=== PATIENT | female | born 1930 | race Two or more races ===

== ENCOUNTER 2017-03-12 22:09 | Inpatient (IN) | payer MEDICARE, OTHER ==
[~2017-03-12] VITALS: Ht 157.5 cm; Wt 69.4 kg
[~2017-03-12 22:09] MED LIST: AMLO5TAB2 PO; CARV25TA2 PO; CLOP75TA33 PO; LEVE500T20 PO; LISI40TA4 PO; SIMV20TA6 PO; SITA1TBM PO; VIT1TABL46 PO
--- NOTE | 2017-03-12 22:21 | NUR ---
[facility] BROUGHT INTO ER BY RESCUE FOR C/O SOB. FAMILY CALLED 911, PT IS ALERT, ORIENTED X 2, PT IS SPEAKER, NO RESP DISTRESS NOTED OR REPORTED UPON ASSESSMENT... MD AT BEDSIDE...
[2017-03-12] MEDS ORDERED: IV NORMAL SALINE 500 ML BAG IV ONE (22:30)
[2017-03-12 22:49] LABS: BASOPHILS % (AUTO) 0.5 % (0.0-2.0); EOSINOPHILS # (AUTO) 0.2 K/uL (0.0-0.7); EOSINOPHILS % (AUTO) 1.8 % (0.0-7.0); HEMATOCRIT 43.1 % (37-47); HEMOGLOBIN 13.7 G/DL (12.0-16.0); LYMPHOCYTES # (AUTO) 1.3 K/UL (0.8-4.8); LYMPHOCYTES % (AUTO) 15.2 % (20.5-51.5); MEAN CORPUSCULAR HEMOGLOBIN 27.8 UUG (27.0-31.0); MEAN CORPUSCULAR HGB CONC 32 g/dL (32.0-37.0); MEAN CORPUSCULAR VOLUME 87.3 FL (81.0-99.0); MONOCYTES # (AUTO) 0.5 K/UL (0.1-1.30); MONOCYTES % (AUTO) 6.3 % (0.0-11.0); NEUTROPHILS # (AUTO) 6.7 K/UL (1.8-8.9); NEUTROPHILS % (AUTO) 76.2 % (38.5-71.5); PLATELET COUNT (AUTO) 179 K/UL (150-450); RED BLOOD CELL COUNT(AUTO) 4.93 MIL/UL (4.2-5.4); WHITE BLOOD COUNT (AUTO) 8.7 K/UL (4.0-11.2)
[2017-03-12 22:53] LABS: CARBON DIOXIDE 38 mmol/L (21-32); CHLORIDE 99 mmol/L (98-107); CREATININE 1.1 mg/dL (0.6-1.3); GLUCOSE 139 mg/dL (74-106); POTASSIUM 4.7 mmol/L (3.5-5.1); UREA NITROGEN, BLOOD 15 mg/dL (7-18)
[2017-03-12] MEDS ORDERED: SITA1TAB6 PO (23:00)
[2017-03-12] MEDS ORDERED: LEVE1000 PO (23:00)
[2017-03-12 23:11] LABS: ALANINE AMINOTRANSFERASE 22 U/L (14-59); ALKALINE PHOSPHATASE 92 U/L (50-136); ASPARTATE AMINOTRANSFERASE 19 U/L (15-37); BILIRUBIN,DIRECT 0.1 mg/dL (0.0-0.2); BILIRUBIN,TOTAL 0.3 mg/dL (0.2-1.0); TOTAL PROTEIN, SERUM 7.8 g/dL (6.4-8.2)
[2017-03-12] MEDS ORDERED: NITROGLYCERIN OINT 1 GM PACKET TP ONE ×2 (23:15→23:23)
[2017-03-12] MEDS ORDERED: FUROSEMIDE 20 MG/2 ML VIAL IV ONE (23:15)
[2017-03-12] MEDS ORDERED: FUROSEMIDE 40 MG/4 ML VIAL ONE (23:25)
[2017-03-12 23:31] LABS: *BILIRUBIN,URIN NEGATIVE (NEGATIVE); *BLOOD, URINE NEGATIVE (NEGATIVE); *CLARITY,URINE CLEAR (CLEAR); *COLOR,URINE YELLOW (YELLOW); *KETONES,URINE NEGATIVE (NEGATIVE); *PROTEIN,URINE 1+ (NEGATIVE); *UROBILINOGEN,URINE 0.2 E.U./dl (NORMAL); LEUKOCYTE ESTERASE ,URINE 1+ (NEGATIVE); NITRITE, URINE NEGATIVE (NEGATIVE); UGLUCOSE NEGATIVE (NEGATIVE)
[2017-03-12 23:46] LABS: BACTERIA,URINE FEW /HPF (NONE SEEN); RBC,URINE 0-3 /HPF (0-3); SQUAMOUS EPITHELIAL CELL,UR MODERATE /HPF (NONE SEEN)
[2017-03-13] MEDS ORDERED: LABETALOL HCL 100 MG/20 ML VIAL IV ONE
--- NOTE | 2017-03-13 00:02 | NUR ---
Pt. admitted to TELE , under care of Dr. WALL, Belongs List completed, Pt is alert, oriented x 2, no resp distress noted or reported upon transfer assessment... pt transferred via gurney...
[2017-03-13] MEDS ORDERED: LABETALOL HCL 100 MG/20 ML VIAL ONE ×2 (00:03→00:38)
[2017-03-13] MEDS ORDERED: LABETALOL HCL 100 MG/20 ML VIAL IV PRN (00:30)
[2017-03-13] MEDS ORDERED: DEXTROSE 50% 50 ML DISP.SYRIN IV PRN ×2 (00:45→06:45)
[2017-03-13] MEDS ORDERED: INSULIN REGULAR, HUMAN 300 UNIT/3 ML VIAL SQ PRN ×2 (00:45→06:45)
--- NOTE | 2017-03-13 02:00 | NUR ---
Admitted this 86 y/o female patient via gurney escorted by family members. Awake alert & oriented. Initial assessment done. Patient speaks Mckay[place] only. No SOB denies chest pain. Placed on Telemetry- patient has pacemaker but not pacing- Sinus rhythm on the monitor. Instruction about Heart failure provided. Offered night snacks but patient refused. Will continue to monitor.
[2017-03-13 04:00] VITALS: BP 120/63
--- NOTE | 2017-03-13 06:00 | NUR ---
Rested well, no acute resp. distress. Vital signs are WNL. sinus rhythm on the monitor. For 2Decho today.
[2017-03-13] MEDS ORDERED: ONDANSETRON 4 MG/2 ML VIAL IV PRN (06:45)
[2017-03-13] MEDS ORDERED: hydrALAZINE HCL 25 MG TABLET PO PRN ×2 (06:45→19:45)
[2017-03-13] MEDS ORDERED: MAGNESIUM HYDROXIDE 30 ML LIQUID UDC PO PRN (06:45)
[2017-03-13] MEDS ORDERED: ACETAMINOPHEN 325 MG TABLET PO PRN (06:45)
[2017-03-13] MEDS ORDERED: MORPHINE SULFATE 2 MG/1 ML DISP.SYRIN IV PRN (06:45)
[2017-03-13] MEDS: BLOOD SUGAR DIAGNOSTIC 1 EACH STRIP VI SCH ×4 (06:51→21:33)
[2017-03-13] MEDS ORDERED: BLOOD SUGAR DIAGNOSTIC 1 EACH STRIP VI SCH (07:30)
[2017-03-13 07:44] LABS: BASOPHILS % (AUTO) 0.3 % (0.0-2.0); EOSINOPHILS # (AUTO) 0.2 K/uL (0.0-0.7); HEMATOCRIT 39.6 % (37-47); HEMOGLOBIN 12.7 G/DL (12.0-16.0); LYMPHOCYTES # (AUTO) 1.8 K/UL (0.8-4.8); LYMPHOCYTES % (AUTO) 22.6 % (20.5-51.5); MEAN CORPUSCULAR HEMOGLOBIN 27.4 UUG (27.0-31.0); MEAN CORPUSCULAR HGB CONC 32 g/dL (32.0-37.0); MEAN CORPUSCULAR VOLUME 85.7 FL (81.0-99.0); MONOCYTES # (AUTO) 0.7 K/UL (0.1-1.30); MONOCYTES % (AUTO) 8.8 % (0.0-11.0); NEUTROPHILS # (AUTO) 5.1 K/UL (1.8-8.9); NEUTROPHILS % (AUTO) 66.3 % (38.5-71.5); PLATELET COUNT (AUTO) 185 K/UL (150-450); RED BLOOD CELL COUNT(AUTO) 4.62 MIL/UL (4.2-5.4); WHITE BLOOD COUNT (AUTO) 7.8 K/UL (4.0-11.2)
[2017-03-13 07:56] LABS: CARBON DIOXIDE 37 mmol/L (21-32); CHLORIDE 100 mmol/L (98-107); GLUCOSE 101 mg/dL (74-106); UREA NITROGEN, BLOOD 14 mg/dL (7-18)
[2017-03-13 08:02] LABS: ALANINE AMINOTRANSFERASE 18 U/L (14-59); ALKALINE PHOSPHATASE 84 U/L (50-136); ASPARTATE AMINOTRANSFERASE 19 U/L (15-37); BILIRUBIN,TOTAL 0.3 mg/dL (0.2-1.0); CHOLESTEROL 129 mg/dL (<200); HDL CHOLESTEROL 75 mg/dL (40-60); MAGNESIUM 1.8 mg/dL (1.8-2.4); PHOSPHOROUS 3.9 mg/dL (2.5-4.9); TOTAL PROTEIN, SERUM 7.2 g/dL (6.4-8.2); TRIGLYCERIDES 45 MG/DL (30-150)
[2017-03-13] MEDS: PANTOPRAZOLE SODIUM 40 MG TABLET.DR PO SCH (08:03)
[2017-03-13] MEDS: Z GUARD REMEDY PASTE 57 GM TUBE TOP SCH ×2 (08:04→21:20)
[2017-03-13 08:10] LABS: THYROID STIMULATING HORMONE 1.126 mIU/mL (0.358-3.740)
[2017-03-13] MEDS ORDERED: Medication Not On Formulary EA (Sitagliptin Phos/Metformin Hcl (Janumet 50-1,000 Mg Tabl PO SCH (09:00)
[2017-03-13] MEDS ORDERED: FUROSEMIDE 20 MG/2 ML VIAL IV SCH (09:00)
[2017-03-13] MEDS ORDERED: Medication Not On Formulary EA (Levetiracetam (Keppra) 1,000 MG) PO SCH (09:00)
[2017-03-13] MEDS: METFORMIN HCL 500 MG TABLET PO SCH (09:04)
[2017-03-13] MEDS: LINAGLIPTIN 5 MG TABLET PO SCH (09:04)
[2017-03-13] MEDS: LISINOPRIL 20 MG TABLET PO SCH (09:05)
[2017-03-13 11:57] VITALS: BP 140/78
[2017-03-13] MEDS: CARVEDILOL 25 MG TABLET PO SCH ×2 (12:41→16:56)
[2017-03-13] MEDS: LEVETIRACETAM 500 MG TABLET PO SCH ×2 (12:41→21:20)
[2017-03-13 15:55] VITALS: BP 139/79
--- NOTE | 2017-03-13 19:10 | NUR ---
Bedside reporting with RAMA Rosario. Patient sleeping during initial rounds but easily arousable when name called. Denies any pain/discomforts. Family at bedside. Safety measures maintained. Continue care as planned.
[2017-03-13 20:00] VITALS: BP 144/81
--- NOTE | 2017-03-13 20:10 | NUR ---
Assisted to the bathroom. Voiding well.
[2017-03-13] MEDS: DOCUSATE SODIUM 100 MG CAPSULE PO SCH (21:19)
[2017-03-13] MEDS: SIMVASTATIN 20 MG TABLET PO SCH (21:20)
[2017-03-14 05:28] VITALS: BP 137/74
[2017-03-14] MEDS: PANTOPRAZOLE SODIUM 40 MG TABLET.DR PO SCH (05:48)
[2017-03-14] MEDS: BLOOD SUGAR DIAGNOSTIC 1 EACH STRIP VI SCH ×4 (05:48→21:15)
--- NOTE | 2017-03-14 06:18 | NUR ---
No significant event reported all night. Slept good. No s/s of hypo/hyperglycemia reported. All needs attended and met. Continue care as planned.
[2017-03-14 06:38] LABS: BASOPHILS % (AUTO) 0.1 % (0.0-2.0); EOSINOPHILS # (AUTO) 0.3 K/uL (0.0-0.7); EOSINOPHILS % (AUTO) 3.2 % (0.0-7.0); HEMATOCRIT 39.2 % (37-47); HEMOGLOBIN 12.6 G/DL (12.0-16.0); LYMPHOCYTES # (AUTO) 1.5 K/UL (0.8-4.8); LYMPHOCYTES % (AUTO) 16.6 % (20.5-51.5); MEAN CORPUSCULAR HEMOGLOBIN 27.6 UUG (27.0-31.0); MEAN CORPUSCULAR HGB CONC 32 g/dL (32.0-37.0); MEAN CORPUSCULAR VOLUME 85.9 FL (81.0-99.0); MONOCYTES # (AUTO) 0.9 K/UL (0.1-1.30); MONOCYTES % (AUTO) 9.7 % (0.0-11.0); NEUTROPHILS # (AUTO) 6.4 K/UL (1.8-8.9); NEUTROPHILS % (AUTO) 70.4 % (38.5-71.5); PLATELET COUNT (AUTO) 174 K/UL (150-450); RED BLOOD CELL COUNT(AUTO) 4.56 MIL/UL (4.2-5.4); WHITE BLOOD COUNT (AUTO) 9.1 K/UL (4.0-11.2)
[2017-03-14 06:55] LABS: CARBON DIOXIDE 38 mmol/L (21-32); CHLORIDE 98 mmol/L (98-107); CREATININE 1.1 mg/dL (0.6-1.3); GLUCOSE 106 mg/dL (74-106); MAGNESIUM 1.9 mg/dL (1.8-2.4); PHOSPHOROUS 3.2 mg/dL (2.5-4.9); POTASSIUM 3.9 mmol/L (3.5-5.1); UREA NITROGEN, BLOOD 16 mg/dL (7-18)
--- NOTE | 2017-03-14 07:28 | NUR ---
Bedside reporting with RAMA Leal
[2017-03-14] MEDS: ASPIRIN 81 MG TAB.CHEW PO SCH (08:14)
[2017-03-14] MEDS: CARVEDILOL 25 MG TABLET PO SCH ×2 (08:15→16:36)
[2017-03-14] MEDS: LINAGLIPTIN 5 MG TABLET PO SCH (08:15)
[2017-03-14] MEDS: LISINOPRIL 20 MG TABLET PO SCH (08:15)
[2017-03-14] MEDS: METFORMIN HCL 500 MG TABLET PO SCH (08:15)
[2017-03-14] MEDS: LEVETIRACETAM 500 MG TABLET PO SCH ×2 (08:16→21:10)
[2017-03-14] MEDS: Z GUARD REMEDY PASTE 57 GM TUBE TOP SCH ×2 (08:16→21:10)
[2017-03-14] MEDS ORDERED: AMLODIPINE 5 MG TABLET PO SCH (09:00)
[2017-03-14] MEDS ORDERED: AMLODIPINE 2.5 MG TABLET PO SCH (09:00)
[2017-03-14 11:33] VITALS: BP 158/82
[2017-03-14 15:43] VITALS: BP 143/84
--- NOTE | 2017-03-14 17:55 | NUR ---
PATIENT BEEN IN CHAIR DURING THE DAY. NO S/S OF DISTRESS OR PAIN NOTED. MEDICATIONS WERE GIVEN AND WELL TOLERATED. UNSTEADY GAIT. NEED ASSISTANCE FOR BATHROOM, DIAPER ON PLACED. FAMILY MEMBER WERE AT THE BEDSIDE. I WAS ABLE TO COMMUNICATE WITH THE FAMILY ABOUT PATENT'S NEED DUE TO LANGUAGE BARRIER. SAFETY AND COMFORT PROVIDED BY STAFF. WILL CONTINUE MONITORING.
--- NOTE | 2017-03-14 19:10 | NUR ---
BEDSIDE REPORTING WITH RAMA COLINDRES. PATIENT ON CHAIR, SMILING. NO S/S OF RESPIRATORY DISTRESS NOTED. [facility] SPEAKING. SAFETY MEASURE AND FALL PRECAUTION MAINTAINED. CONTINUE CARE PLANNED.
[2017-03-14 20:00] VITALS: BP 166/87
--- NOTE | 2017-03-14 20:00 | NUR ---
FAMILY AT BEDSIDE. PATIENT AMBULATED WITH FWW OUTSIDE ROOM TOLERATED WITH VISUAL SUPERVISION.
[2017-03-14] MEDS: DOCUSATE SODIUM 100 MG CAPSULE PO SCH (21:09)
[2017-03-14] MEDS: SIMVASTATIN 20 MG TABLET PO SCH (21:10)
--- NOTE | 2017-03-14 21:30 | NUR ---
BP 166/87 Apresoline 25 mg 1 tab given as needed and ordered. Will rechecked after 1 hour.
--- NOTE | 2017-03-14 22:30 | NUR ---
BP 127/69.
--- NOTE | 2017-03-15 00:15 | NUR ---
Tried to ambulate to the bathroom with walker and assistance. Gait not steady and wabbly. Not safe to ambulate.
[2017-03-15 04:00] VITALS: BP 154/71
--- NOTE | 2017-03-15 05:41 | NUR ---
Patient was very confused and disoriented. She tried to get up several times. Safety measure and fall precaution maintained. No significant event reported. All needs attended and met. Continue care as planned.
[2017-03-15] MEDS: PANTOPRAZOLE SODIUM 40 MG TABLET.DR PO SCH (06:02)
[2017-03-15] MEDS: BLOOD SUGAR DIAGNOSTIC 1 EACH STRIP VI SCH ×2 (06:15→11:25)
[2017-03-15] MEDS: ASPIRIN 81 MG TAB.CHEW PO SCH (08:21)
[2017-03-15] MEDS: LEVETIRACETAM 500 MG TABLET PO SCH (08:21)
[2017-03-15] MEDS: METFORMIN HCL 500 MG TABLET PO SCH (08:23)
[2017-03-15] MEDS: Z GUARD REMEDY PASTE 57 GM TUBE TOP SCH (08:23)
[2017-03-15] MEDS: LINAGLIPTIN 5 MG TABLET PO SCH (08:23)
[2017-03-15] MEDS: CARVEDILOL 25 MG TABLET PO SCH (08:27)
[2017-03-15] MEDS: LISINOPRIL 20 MG TABLET PO SCH (08:27)
[2017-03-15] MEDS ORDERED: AMLODIPINE 5 MG TABLET PO SCH (09:00)
[2017-03-15] MEDS ORDERED: AMLODIPINE 2.5 MG TABLET PO SCH (09:00)
[2017-03-15 12:10] VITALS: BP 118/57
[2017-03-15] MEDS ORDERED: AMLO5TAB2 PO (14:12)
[2017-03-15] MEDS ORDERED: ASPI81TA31 PO (14:12)
--- NOTE | 2017-03-15 16:00 | NUR ---
PATIENT BEEN DISCHARGE HOME IN SAFE AND STABLE CONDITION WITH HOME HEALTH. NO S/S OF DISTRESS NOTED DURING THE DAY. WORKED WITH PT, UNSTEADY GAIT AND SHAKINESS IN THE LOWER LEGS PER REPORT. DR. RICHARDS AWARE. HOME HEALTH WITH PT WAS ORDER. HOME HEALTH INFORMATION WAS GIVEN GRACIELA MCKEON. DISCHARGE INSTRUCTIONS WERE EXPLAINED TO FAMILY. IV AND ID REMOVED. SAFETY AND COMFORT PROVIDED DURING THE DAY. PATIENT WAS TAKEN DOWNSTAIRS TO HER FAMILY CAR BY VOLUNTEER IN SAFE CONDITION.
== END 2017-03-15 15:30 | disposition home health service (06) | DRG 291 ==
LOC: ER 22:16 → TELE 23:18 → MED 03-13 20:13
PROVIDERS: ADMIT Internal Medicine
DX: I13.0 Hypertensive heart and chronic kidney disease with heart failure and stage 1 through stage 4 chronic kidney disease, or unspecified chronic kidney disease (principal); I50.33 Acute on chronic diastolic (congestive) heart failure; G93.40 Encephalopathy, unspecified; G40.909 Epilepsy, unspecified, not intractable, without status epilepticus; E78.5 Hyperlipidemia, unspecified; Z95.0 Presence of cardiac pacemaker; I25.10 Atherosclerotic heart disease of native coronary artery without angina pectoris; E11.22 Type 2 diabetes mellitus with diabetic chronic kidney disease; N18.3 Chronic kidney disease, stage 3 (moderate); I07.1 Rheumatic tricuspid insufficiency; E86.0 Dehydration; Z79.899 Other long term (current) drug therapy; Z79.84 Long term (current) use of oral hypoglycemic drugs; Z95.5 Presence of coronary angioplasty implant and graft; I25.2 Old myocardial infarction
CPT/HCPCS: 36415; 70030-TC; 71010; 83735; 84100; 84443; 85025; 85730; 87086; 93005; 93307; 97161; A4663; J1815; J1940; J3490; J7040